=== PATIENT | female | born 1945 | race Caucasian/White ===

== ENCOUNTER 2017-04-24 10:11 | Inpatient (IN) | payer MEDICARE ==
[~2017-04-24] VITALS: Ht 162.6 cm; Wt 57.2 kg
[~2017-04-24 10:11] MED LIST: ACETAMINOPHEN325 M1 PO; ACETYLCYST200 MG/1 M INH; AMIODARONE HCL200 MG PO; AMLODIPINE BESYL5 MG PO; ASPIR 8181 MG PO; ATIVAN0.5 MG PO; Albuterol/Ipratropium Nebulize NEB; COUMADIN3 MG PO; ELIQUIS PO; FAMOTIDINE20 MG PO; GLIMEPIRIDE1 MG PO; GLIMEPIRIDE2 MG PO; HUMULIN R100 UNIT/2 SQ; LIPITOR10 MG PO; METFORMIN HCL500 MG PO; METOPROLOL TART50 MG PO; MUPIROCIN22 GM TOP; RANITIDINE HCL150 MG PO; TEMAZEPAM7.5 MG PO; TESSALON PERLE100 MG PO; ZESTRIL20 MG PO; ZOFRAN4 MG PO
[2017-04-24] MEDS ORDERED: SODIUM CHLORIDE 0.9% 1000ML 1,000 ML IV STA (10:41)
[2017-04-24] MEDS ORDERED: PANTOPRAZOLE 40 MG 10ML VIAL IV STA (10:41)
[2017-04-24 11:59] LABS: BASOPHILS # (AUTO) 0.1 (0.0-0.1); BASOPHILS % 0.9 % (0.0-1.0); EOSINOPHILS # (AUTO) 0.2 (0.0-0.4); EOSINOPHILS % 2.6 % (0.0-6.0); HEMOGLOBIN 11.9 g/dL (12.0-16.0); LYMPHOCYTES # (AUTO) 0.8 (1.0-3.2); LYMPHOCYTES % 13.3 % (18.0-39.1); MEAN CORPUSCULAR HEMOGLOBIN 27.6 pg (28-32); MEAN CORPUSCULAR HGB CONC 32.2 g/dL (31-35); MEAN CORPUSCULAR VOLUME 85.8 fL (81-99); MONOCYTES # (AUTO) 0.5 (0.2-0.8); MONOCYTES % 9.2 % (4.4-11.3); NEUTROPHILS # (AUTO) 4.3 (2.1-6.9); NEUTROPHILS % 73.8 % (38.7-80.0); PLATELET COUNT 193 x10e3/uL (140-360); RED BLOOD COUNT 4.31 x10e6/uL (3.6-5.1); RED CELL DISTRIBUTION WIDTH 13.2 % (11.7-14.4)
--- NOTE | 2017-04-24 11:59 | Diagnostic Imaging Report ---
Portable chest x-ray CPT code 71242 INDICATION: Hematochezia, shortness of breath COMPARISON: 01/04/2017 FINDINGS: Frontal view of the chest obtained at 1106 hours. A skinfold is across the right chest. The cardiac silhouette is stable with cardiac bypass changes. Aortic ectasia is stable. The pulmonary vascular marking are normal. The lungs demonstrate no soft tissue mass or infiltrate. Scarring in the left midlung field is stable. Right lower lobe calcified granuloma is stable. The costophrenic angles are sharp. There is no pneumothorax. The osseous structures are stable. Median sternotomy wires are intact. IMPRESSION: Stable chest. No active disease. Signed by: Dr. Ronnie Davis MD on 04/24/2017 11:53 AM
[2017-04-24 12:11] LABS: INR 1.18; PROTHROMBIN TIME 15.6 seconds (11.9-14.5)
[2017-04-24 12:12] LABS: PARTIAL THROMBOPLASTIN TIME 35.9 seconds (23.8-35.5)
[2017-04-24 12:21] LABS: ALANINE AMINOTRANSFERASE 13 IU/L (0-55); ALBUMIN 3.2 g/dL (3.5-5.0); ALBUMIN/GLOBULIN RATIO 0.8 (0.8-2.0); ALKALINE PHOSPHATASE 60 IU/L (40-150); ANION GAP 12.8 mmol/L (8-16); BLOOD UREA NITROGEN 37 mg/dL (7-26); BUN/CREATININE RATIO 50 (6-25); CALCIUM 9.4 mg/dL (8.4-10.2); CARBON DIOXIDE 24 mmol/L (22-29); CHLORIDE 105 mmol/L (98-107); CREATINE KINASE 34 IU/L (29-168); CREATININE, SERUM 0.74 mg/dL (0.57-1.11); EST GLOMERULAR FILTRATION RATE > 60 ML/MIN (60-); GLUCOSE 79 mg/dL (74-118); POTASSIUM 4.8 mmol/L (3.5-5.1); SODIUM 137 mmol/L (136-145)
[2017-04-24 12:27] LABS: TROPONIN I 0.009 ng/mL (0-0.300)
[2017-04-24] MEDS ORDERED: SODIUM CHLORIDE 0.9% 250ML 250 ML IV ONE (13:00)
[2017-04-24] MEDS ORDERED: SODIUM CHLORIDE 0.9% IV SCH (13:15)
[2017-04-24] MEDS ORDERED: PANTOPRAZOLE IV SCH (13:15)
[2017-04-24] MEDS: SODIUM CHLORIDE 0.9% 1000ML 1,000 ML IV SCH ×2 (14:17→23:53)
[2017-04-24 16:38] VITALS: BP 146/76
[2017-04-24 17:40] VITALS: BP 146/76
[2017-04-24 17:45] VITALS: BP 146/76
[2017-04-24] MEDS ORDERED: PHYTONADIONE 10 MG/ML AMP SQ ONE (18:15)
[2017-04-24 18:31] LABS: HEMATOCRIT 32.8 % (34.2-44.1); HEMOGLOBIN 10.5 g/dL (12.0-16.0)
[2017-04-24 20:13] VITALS: BP 137/79
[2017-04-24 23:32] LABS: HEMATOCRIT 30.2 % (34.2-44.1); HEMOGLOBIN 9.6 g/dL (12.0-16.0)
[2017-04-24 23:57] VITALS: BP 142/71
[2017-04-25] VITALS (11 sets, daily range): BP systolic 120–155; BP diastolic 65–75
[2017-04-25] MEDS: SODIUM CHLORIDE 0.9% 1000ML 1,000 ML IV SCH ×2 (04:52→18:42)
[2017-04-25] MEDS ORDERED: PHYTONADIONE 10 MG/ML AMP SQ ONE (05:00)
[2017-04-25 06:12] LABS: HEMATOCRIT 31.1 % (34.2-44.1); HEMOGLOBIN 10.2 g/dL (12.0-16.0)
[2017-04-25 07:19] LABS: ANION GAP 11.5 mmol/L (8-16); BLOOD UREA NITROGEN 20 mg/dL (7-26); BUN/CREATININE RATIO 31 (6-25); CARBON DIOXIDE 24 mmol/L (22-29); CHLORIDE 110 mmol/L (98-107); CREATININE, SERUM 0.65 mg/dL (0.57-1.11); EST GLOMERULAR FILTRATION RATE > 60 ML/MIN (60-); POTASSIUM 3.5 mmol/L (3.5-5.1); SODIUM 142 mmol/L (136-145)
[2017-04-25 07:21] LABS: GLUCOSE 48 mg/dL (74-118)
[2017-04-25 07:24] LABS: CALCIUM 8.7 mg/dL (8.4-10.2)
[2017-04-25] MEDS ORDERED: DEXTROSE 50% SYRINGE 50 ML IV ONE (08:00)
[2017-04-25] MEDS ORDERED: HYDROCODONE/APAP 7.5MG-325MG 1 EA TAB PO PRN (08:15)
--- NOTE | 2017-04-25 11:30 | Operative Report ---
DATE OF PROCEDURE: April 25, 2017 REFERRING PHYSICIAN: Dr. Chucho Gamboa PROCEDURE PERFORMED: Esophagogastroduodenoscopy with biopsies. INDICATIONS FOR EGD: Anemia. History of melena. MEDICATION: Patient was done under MAC. Please see anesthesiologist's note. PROCEDURE: With the patient in the left lateral decubitus position, the flexible fiberoptic Olympus gastroscope was introduced into the esophagus under direct visualization without any difficulty. There was some patchy, intense erythema noted in the antrum. The body overall appeared to be within normal limits. Biopsies were obtained from the antrum and sent to stain for H. pylori. Pylorus appeared to be of normal contour and shape. It was intubated with ease, and the scope was advanced all the way to the 2nd portion of the duodenum. The scope was then withdrawn slowly. Mucosa overlying the proximal 2nd portion and the duodenal bulb appeared to be within normal limits. The scope was then withdrawn back into the stomach and retroflexed. The mucosa overlying the fundus and the cardia appeared to be within normal limits. The scope was then straightened out. The stomach was decompressed. Scope was subsequently withdrawn. Patient tolerated the procedure well. IMPRESSION 1. Mild distal esophagitis. 2. Gastritis, antrum, biopsied. Biopsies sent to stain for H. pylori. PLAN: Follow up histology. Continue PPI therapy. Findings do not necessarily explain the patient's blood loss. She will need a colonoscopy. Job#: [id number] cc:MD SHALONDA DEGROOT M.D.
[2017-04-25] MEDS: METOPROLOL TARTRATE 50 MG TAB PO SCH ×2 (11:51→17:51)
[2017-04-25 11:58] LABS: HEMATOCRIT 31.5 % (34.2-44.1); HEMOGLOBIN 10.2 g/dL (12.0-16.0)
[2017-04-25] MEDS: ALBUTEROL/IPRATROPIUM 3 ML NEB NEB SCH (13:00)
[2017-04-25] MEDS: ACETAMINOPHEN 325 MG TAB PO PRN ×2 (14:23→14:24)
[2017-04-25] MEDS ORDERED: BISACODYL 5 MG TAB EC PO ONE ×2 (14:45→15:30)
[2017-04-25] MEDS ORDERED: LORAZEPAM 0.5 MG TAB PO PRN (16:15)
[2017-04-25] MEDS ORDERED: DEXTROSE 50% SYRINGE 50 ML IV PRN (16:45)
[2017-04-25] MEDS ORDERED: CITRATE OF MAGNESIA 300ML BOTTLE PO NR ×2 (17:00→19:00)
--- NOTE | 2017-04-25 17:34 | History and Physical ---
PRIMARY CARE PROVIDER: Dr. Chandler Crocker at the [facility]. CHIEF COMPLAINT: Rectal bleeding. HISTORY OF PRESENT ILLNESS: Ms. Eng is a 71-year-old lady who noticed rectal bleeding times 1 day that started yesterday. She denies abdominal pain, rectal pain, constipation. The blood is bright red blood. REVIEW OF SYSTEMS: She denies fever, chills or weight loss. She denies sinus congestion or sore throat. She denies chest pain or palpitations. She denies shortness of breath, wheezing, or cough. She denies abdominal pain, nausea or vomiting. She has bright red blood per rectum. She denies melena. She denies dysuria or flank pain. She denies rash or pruritus. Denies joint pain or swelling. She has rectal bleeding as noted. She denies headache, vertigo or loss of consciousness. She denies depression, agitation, homicidal or suicidal ideation. PAST MEDICAL HISTORY: Significant for longstanding hypertension and type-2 diabetes. She has coronary artery disease and required coronary bypass surgery about 2 years ago. She has had a stroke in the past. 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 She had a MECH[employer]ICAL CAR [employer]ER shunt placed a few years ago. The shunt got infected and was removed and was not replaced. 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 Patient also has COPD and is a former smoker. She uses neb treatments at home. She has chronic systolic heart failure and has had in the past some paroxysmal atrial fibrillation. She also has a distant history of hysterectomy in addition to the 2 other surgeries. ALLERGIES: SHE HAS NO KNOWN DRUG ALLERGIES. FAMILY HISTORY: Remarkable for hypertension, diabetes and heart disease. SOCIAL HISTORY: The patient is . Latvian is her primary language. She does not smoke, drink or use illegal drugs. She quit smoking years ago. She is independently functioning. PHYSICAL EXAMINATION PSYCHIATRIC: She is alert and oriented times 3 with normal mood and affect. CONSTITUTIONAL: She has a normal body habitus. She is in no acute distress. VITAL SIGNS: Blood pressure 142/68. Pulse 61 and regular. Respiratory rate 20. O2 sat 99%. Temperature 99.3. HEENT: Head is atraumatic. Eyes are anicteric with clear conjunctivae. She has an approximately 6-cm area of chronic nonhealing ulceration on the top of her skull. NECK: Supple with no mass or thyromegaly. LYMPHATIC SYSTEM: She has no palpable cervical, axillary or inguinal adenopathy. CARDIOVASCULAR: Her heart has a regular rate and rhythm without murmur or extra heart sounds. She has no carotid bruit. She has no peripheral edema. She has weak dorsal pedal pulses. RESPIRATORY: Lungs are clear to auscultation and percussion with normal respiratory effort. GASTROINTESTINAL: Abdomen is soft without organomegaly, masses or tenderness. She has normal bowel sounds present. CUTANEOUS: Her skin is warm and dry to touch with no rash or skin breakdown aside from the nonhealing wound on her scalp. MUSCULOSKELETAL: Her joints are in normal alignment without erythema or swelling. She has no calf tenderness. NEUROLOGIC: Exam is nonfocal with intact cranial nerves and no motor or sensory deficits. DIAGNOSTIC STUDIES: Chest x-ray shows no acute disease. EKG shows normal sinus rhythm with possible old septal infarct. Her CBC shows a white count of 5.79 with 74% neutrophils. Hemoglobin 11.9, hematocrit 37.0, platelet count 193,000. She has had several serial H and H's. The last ones were hemoglobin 10.2 and hematocrit 31.5. Her pro time is 15.6 with an INR of 1.18. Her chemistry shows normal electrolytes, CO2 24, creatinine 0.74, BUN 37 for a normal GFR, glucose 79, calcium 9.4. Transaminases, bilirubin and alk phos are normal. IMPRESSION AND PLAN 1. Rectal bleeding. The patient is getting serial H and H's. So far, has not required a transfusion. Will transfuse if hemoglobin drops below 7. She was started empirically on IV Protonix drip. GI was consulted for possible upper and lower endoscopy. 2. Hypertension complicated by coronary artery disease with previous bypass surgery also complicated by chronic systolic heart failure. The patient will continue on her metoprolol for now. 3. Chronic obstructive pulmonary disease. The patient will be getting routine nebulizer treatments. 4. Type-2 diabetes. Patient's blood sugar is actually running low. Will continue to monitor sugar and give D50 as needed and sliding-scale insulin if necessary. 5. For prophylaxis, the patient will be on Protonix for GI prophylaxis and SCDs for DVT prophylaxis. Job#: [id number] MH
[2017-04-25] MEDS ORDERED: PROPOFOL IV EMULSION 10 MG/ML 20 ML VIAL ONE (17:59)
[2017-04-25] MEDS: SODIUM CHLORIDE 0.9% IV SCH (18:08)
[2017-04-25] MEDS: PANTOPRAZOLE IV SCH (18:08)
[2017-04-25 18:47] LABS: HEMATOCRIT 34.9 % (34.2-44.1); HEMOGLOBIN 11.3 g/dL (12.0-16.0)
[2017-04-25] MEDS: INSULIN REGULAR, HUMAN 100 UNIT/1 ML 3ML VIAL SQ SCH (21:00)
[2017-04-26 04:00] VITALS: BP 135/73
[2017-04-26] MEDS ORDERED: CITRATE OF MAGNESIA 300ML BOTTLE PO ONE (06:00)
[2017-04-26 06:34] LABS: BASOPHILS % 0.7 % (0.0-1.0); EOSINOPHILS # (AUTO) 0.3 (0.0-0.4); EOSINOPHILS % 5.4 % (0.0-6.0); HEMATOCRIT 34.2 % (34.2-44.1); LYMPHOCYTES # (AUTO) 0.8 (1.0-3.2); LYMPHOCYTES % 16.6 % (18.0-39.1); MEAN CORPUSCULAR HEMOGLOBIN 27.2 pg (28-32); MEAN CORPUSCULAR HGB CONC 32.2 g/dL (31-35); MEAN CORPUSCULAR VOLUME 84.7 fL (81-99); MONOCYTES # (AUTO) 0.5 (0.2-0.8); MONOCYTES % 9.8 % (4.4-11.3); NEUTROPHILS # (AUTO) 3.1 (2.1-6.9); NEUTROPHILS % 67.3 % (38.7-80.0); PLATELET COUNT 193 x10e3/uL (140-360); RED BLOOD COUNT 4.04 x10e6/uL (3.6-5.1); RED CELL DISTRIBUTION WIDTH 12.7 % (11.7-14.4)
[2017-04-26 06:57] LABS: INR 0.94
[2017-04-26 07:10] LABS: % IRON SATURATION 8 % (15-50); ANION GAP 10.4 mmol/L (8-16); BLOOD UREA NITROGEN 16 mg/dL (7-26); BUN/CREATININE RATIO 22 (6-25); CALCIUM 9.1 mg/dL (8.4-10.2); CARBON DIOXIDE 24 mmol/L (22-29); CHLORIDE 111 mmol/L (98-107); CREATININE, SERUM 0.74 mg/dL (0.57-1.11); EST GLOMERULAR FILTRATION RATE > 60 ML/MIN (60-); GLUCOSE 80 mg/dL (74-118); IRON 22 ug/dL (50-170); POTASSIUM 3.4 mmol/L (3.5-5.1); SODIUM 142 mmol/L (136-145); TOTAL IRON BINDING CAPACITY 265 ug/dL (261-478); TRANSFERRIN 189 mg/dL (180-382)
[2017-04-26 07:15] LABS: B-TYPE NATRIURETIC PEPTIDE2 462.8 pg/mL (0-100)
[2017-04-26] MEDS: INSULIN REGULAR, HUMAN 100 UNIT/1 ML 3ML VIAL SQ SCH ×4 (07:30→20:10)
[2017-04-26 07:38] LABS: THYROID STIMULATING HORMONE 0.517 uIU/mL (0.350-4.940)
[2017-04-26 07:43] VITALS: BP 132/79
[2017-04-26] MEDS: METOPROLOL TARTRATE 50 MG TAB PO SCH ×2 (08:06→16:31)
--- NOTE | 2017-04-26 11:44 | Operative Report ---
DATE OF PROCEDURE: April 26, 2017 REFERRING PHYSICIAN: Dr. Vipin Gamboa PROCEDURE PERFORMED: Colonoscopy and polypectomy. INDICATIONS FOR COLONOSCOPY: Blood in stool. Anemia. MEDICATION: Patient was done under MAC. Please see anesthesiologist's note. PROCEDURE: With the patient in the left lateral decubitus position, the flexible fiberoptic Olympus colonoscope was inserted into the rectum with ease and advanced all the way to the cecum. It was then withdrawn slowly. Mucosa overlying the cecum, ascending colon and transverse colon grossly appeared to be within normal limits. Some diverticular disease was noted in the distal descending as well as the left colon. One polyp was snared from the sigmoid colon. The rectum appeared to be within normal limits. The scope was then retroflexed into the distal rectum, and small internal hemorrhoids were noted, none of which was actively bleeding. The scope was then straightened out. The rectosigmoid area as well as the distal rectal area were decompressed. Scope was subsequently withdrawn. Patient tolerated the procedure well. IMPRESSION 1. Diverticulosis. 2. Sigmoid colon polyp, snared. 3. Internal hemorrhoids, none actively bleeding. PLAN: Follow up histology. Initiate high-fiber, low-fat diet. Initiate high-fiber supplement. Patient will need a followup colonoscopy in 3 years. Job#: [id number] cc:VIPIN GAMBOA MD
[2017-04-26 11:54] VITALS: BP 115/68
[2017-04-26] MEDS: ALBUTEROL/IPRATROPIUM 3 ML NEB NEB SCH ×2 (13:00→20:02)
[2017-04-26 13:14] LABS: HEMATOCRIT 33.2 % (34.2-44.1); HEMOGLOBIN 10.7 g/dL (12.0-16.0)
[2017-04-26] MEDS ORDERED: POTASSIUM CHLORIDE 20 MEQ TAB CR PO NR (14:30)
[2017-04-26] MEDS: PANTOPRAZOLE IV SCH (15:30)
[2017-04-26] MEDS: SODIUM CHLORIDE 0.9% IV SCH (15:30)
[2017-04-26 15:52] VITALS: BP 126/68
[2017-04-26] MEDS ORDERED: PANTOPRAZOLE IV SCH (16:15)
[2017-04-26] MEDS ORDERED: SODIUM CHLORIDE 0.9% IV SCH (16:15)
[2017-04-26] MEDS: SODIUM CHLORIDE 0.9% 1000ML 1,000 ML IV SCH (16:34)
[2017-04-26] MEDS ORDERED: HYOSCYAMINE SULFATE 0.5 MG/ML AMP ONE (17:44)
[2017-04-26] MEDS ORDERED: GLUCAGON FOR INJ 1 MG VIAL ONE (17:44)
[2017-04-26] MEDS ORDERED: PROPOFOL IV EMULSION 10 MG/ML 50 ML VIAL ONE (17:44)
[2017-04-26] MEDS ORDERED: PHENYLEPHRINE HCL 1% 10 MG/ML VIAL ONE (18:04)
[2017-04-26 18:31] LABS: HEMATOCRIT 33.1 % (34.2-44.1); HEMOGLOBIN 10.4 g/dL (12.0-16.0)
[2017-04-26 19:47] VITALS: BP 130/64
[2017-04-26 19:50] VITALS: BP 130/64
[2017-04-27 00:30] VITALS: BP 115/62
[2017-04-27] MEDS: ALBUTEROL/IPRATROPIUM 3 ML NEB NEB SCH ×2 (02:05→07:00)
[2017-04-27 04:00] VITALS: BP 131/59
[2017-04-27 07:00] VITALS: BP 121/53
[2017-04-27] MEDS: INSULIN REGULAR, HUMAN 100 UNIT/1 ML 3ML VIAL SQ SCH ×2 (07:30→12:19)
[2017-04-27 07:58] LABS: BASOPHILS % 0.6 % (0.0-1.0); EOSINOPHILS # (AUTO) 0.2 (0.0-0.4); EOSINOPHILS % 2.9 % (0.0-6.0); HEMATOCRIT 30.3 % (34.2-44.1); HEMOGLOBIN 9.9 g/dL (12.0-16.0); LYMPHOCYTES # (AUTO) 1.4 (1.0-3.2); LYMPHOCYTES % 26.4 % (18.0-39.1); MEAN CORPUSCULAR HEMOGLOBIN 27.5 pg (28-32); MEAN CORPUSCULAR HGB CONC 32.7 g/dL (31-35); MEAN CORPUSCULAR VOLUME 84.2 fL (81-99); MONOCYTES # (AUTO) 0.4 (0.2-0.8); NEUTROPHILS # (AUTO) 3.2 (2.1-6.9); NEUTROPHILS % 61.9 % (38.7-80.0); PLATELET COUNT 182 x10e3/uL (140-360); RED CELL DISTRIBUTION WIDTH 12.5 % (11.7-14.4)
[2017-04-27 08:27] LABS: ANION GAP 12.5 mmol/L (8-16); BLOOD UREA NITROGEN 21 mg/dL (7-26); BUN/CREATININE RATIO 30 (6-25); CALCIUM 8.5 mg/dL (8.4-10.2); CARBON DIOXIDE 22 mmol/L (22-29); CHLORIDE 110 mmol/L (98-107); CREATININE, SERUM 0.71 mg/dL (0.57-1.11); EST GLOMERULAR FILTRATION RATE > 60 ML/MIN (60-); GLUCOSE 98 mg/dL (74-118); POTASSIUM 3.5 mmol/L (3.5-5.1); SODIUM 141 mmol/L (136-145)
[2017-04-27] MEDS: METOPROLOL TARTRATE 50 MG TAB PO SCH (09:52)
[2017-04-27] MEDS ORDERED: PANTOPRAZOLE SO40 MG PO (10:26)
[2017-04-27] MEDS ORDERED: FERROUS SULFAT325 MG PO (10:26)
[2017-04-27] MEDS ORDERED: ASCORBIC ACID500 MG PO (10:26)
[2017-04-27] MEDS ORDERED: MULTI-VITAMIN1 EACH PO (10:29)
[2017-04-27 11:08] VITALS: BP 120/64
[2017-04-27] MEDS: SODIUM CHLORIDE 0.9% 1000ML 1,000 ML IV SCH (12:01)
[2017-04-27 12:22] VITALS: BP 121/53
--- NOTE | 2017-04-27 22:43 | Discharge Summary ---
ADMITTING DIAGNOSES 1. Rectal bleeding. 2. Hypertension. 3. Chronic obstructive pulmonary disease. 4. Type 2 diabetes. DISCHARGE DIAGNOSES 1. Rectal bleeding. 2. Hypertension. 3. Chronic obstructive pulmonary disease. 4. Type 2 diabetes. 5. Esophagitis. 6. Gastritis. 7. Diverticulosis. 8. Internal hemorrhoids. HISTORY: Patient has a history of hypertension, type 2 diabetes, CAD which required BiPAP about 2 years ago, stroke, hydrocephalus, A[employer]IST shunt which was infected with MRSA. 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 COPD, using neb treatments at home; chronic systolic heart failure; paroxysmal AFib; and hysterectomy. HOSPITAL COURSE: A 71-year-old female noticed rectal bleeding about 1 time a day that started yesterday. She also complained of abdominal pain, rectal pain, and constipation. She described the blood as bright red. On admission, we monitored serial H and H's. Patient did not require blood transfusion because hemoglobin did not drop below 7. She was going to refuse the blood transfusion anyways per the patient report. She was started on IV Protonix drip empirically. GI was consulted. Hypertension was controlled on home medicines, COPD was controlled with neb treatment. Type 2 diabetes also controlled on home medicines. On April 25, 2017, the patient had an EGD with biopsy. EGD showed mild distal esophagitis and gastritis. Biopsy sent for H. pylori. Per GI, continue PPI therapy. Findings do not necessarily explain the patient's blood loss; so, he recommended a colonoscopy. Initially, the patient refused the colonoscopy, but on April 26, 2017, she approved it. The colonoscopy found diverticulosis, sigmoid colon polyp, and internal hemorrhoids. Per GI, she will need a high-fiber, low-fat diet and followup colonoscopy in 3 years. During hospital stay, a chest x-ray was done which showed stable chest, no active disease. At time of discharge, her hemoglobin was 9.9 with hematocrit of 30.3, WBC of 5.11, sodium 141, and potassium 3.5. Vital signs stable, afebrile. Patient sent home on Protonix b.i.d., iron and vitamins. She is to follow up with GI in 1 to 2 weeks as well as PCP. Patient lives with son and has all the equipment needed at home. She was discharged home with family. Dictated by Krystina Zaragoza, MARGRET VIPIN MORA MD Job#: [id number]
== END 2017-04-27 13:11 | disposition home or self-care (01) | DRG 378 ==
LOC: ER 10:11 → ERHOLD 14:06 → IMCU 15:26
PROVIDERS: ADMIT Internal Medicine; ATTEND Internal Medicine
PROC: 0DB78ZX Excision of Stomach, Pylorus, Via Natural or Artificial Opening Endoscopic, Diagnostic (ICD-10-PCS; 2017-04-25)
PROC: 0DB68ZX Excision of Stomach, Via Natural or Artificial Opening Endoscopic, Diagnostic (ICD-10-PCS; 2017-04-25)
PROC: 0DBN8ZX Excision of Sigmoid Colon, Via Natural or Artificial Opening Endoscopic, Diagnostic (ICD-10-PCS; principal; 2017-04-26 09:30)
DX: K92.1 Melena (principal); I50.22 Chronic systolic (congestive) heart failure; I11.0 Hypertensive heart disease with heart failure; I48.0 Paroxysmal atrial fibrillation; D62 Acute posthemorrhagic anemia; K57.91 Diverticulosis of intestine, part unspecified, without perforation or abscess with bleeding; E87.6 Hypokalemia; J44.9 Chronic obstructive pulmonary disease, unspecified; E11.9 Type 2 diabetes mellitus without complications; K29.71 Gastritis, unspecified, with bleeding; K20.9 Esophagitis, unspecified; K64.8 Other hemorrhoids; I25.10 Atherosclerotic heart disease of native coronary artery without angina pectoris; Z86.73 Personal history of transient ischemic attack (TIA), and cerebral infarction without residual deficits; Z87.891 Personal history of nicotine dependence; Z79.01 Long term (current) use of anticoagulants; Z95.1 Presence of aortocoronary bypass graft
CPT/HCPCS: 36415; 43239; 45384; 71010; 80048; 80053; 82550; 82553; 82948; 83036; 83540; 83735; 83880; 84443; 84466; 84484; 85014; 85018; 85025; 85610; 85730; 86850; 86900; 86920; 88305; 88312; 93005; 99284; J1610; J1980; J2370; J3430; J7030; J7050; J7799